=== PATIENT | male | born 1955 | race Caucasian/White ===

== ENCOUNTER → 2017-12-18 | Outpatient (CLI) | payer BC ==
--- NOTE | 2017-12-18 16:53 | RADIOLOGY REPORT (SQ) ---
EXAM DESCRIPTION: RIBS RIGHT W/PA CHEST COMPLETED DATE/TIME: 12/18/2017 3:55 pm REASON FOR STUDY: RIGHT RIB PAIN R07.81 PLEURODYNIA COMPARISON: None. TECHNIQUE: Frontal view of the chest and additional views of the right ribs acquired. NUMBER OF VIEWS: Five views LIMITATIONS: None. FINDINGS: FRONTAL CXR: No pneumothorax. No pleural effusion. No atelectasis or infiltrates. RIBS: No displaced rib fractures. No lytic or blastic bony lesions. OTHER: No other significant finding. IMPRESSION: NO PNEUMOTHORAX. NO DISPLACED RIB FRACTURES. COMMENT: SITE OF TRAUMA/COMPLAINT MARKED/STAMP COMPLETED: Yes TECHNICAL DOCUMENTATION: JOB ID: [id number] [employer]- All Rights Reserved Reading location - IP/workstation name: [email or web address]
== END ==
LOC: OD 15:23
PROVIDERS: ATTEND Nurse Practitioner Family
DX: R07.81 Pleurodynia (principal)

== ENCOUNTER 2019-03-12 07:58 | Day surgery (SDC) | payer MEDICARE, BC ==
[2019-03-12] MEDS ORDERED: PROPOFOL INJ 200 MG/20 ML VIAL IV ONE ×2 (08:02→09:20)
[2019-03-12 10:07] VITALS: BP 114/69
--- NOTE | 2019-03-12 14:27 | Operative Report ---
Operative Report DATE OF SURGERY: 03/12/19 Operative Report: The risks, benefits and alternatives of the procedure including the risk of bleeding, perforation requiring surgery have been explained to the patient in detail and informed consent has been obtained. The patient is brought back to the endoscopy suite and placed in the left, lateral decubital position. Timeout was called. Propofol medication is administered. Rectal examination is done which did not reveal any masses, tears or fissures. An Olympus videoscope was introduced into the patient's rectum. The scope was then carefully advanced all the way to the cecum. The cecum was identified by the usual anatomical landmarks including the ileocecal valve as well as the appendiceal office. Photodocumentation is obtained. The scope was then sequentially pulled back via the various segments of the colon including the ascending colon, hepatic flexu re, transverse colon, splenic flexure, descending colon and finally into the rectosigmoid portions of the colon. Retroflexion maneuvers performed. PREOPERATIVE DIAGNOSIS: Personal history of polyps POSTOPERATIVE DIAGNOSIS: Rectal polyps x2 removed via biopsy forceps. Diverticulosis without any evidence of diverticulitis. Internal hemorrhoids OPERATION: Colonoscopy with biopsy TISSUE REMOVED OR ALTERED: As noted above COMPLICATIONS: None. ESTIMATED BLOOD LOSS: None. INTRAOPERATIVE FINDINGS: As noted above. PROCEDURE: Patient tolerated the procedure well. No immediate postprocedure complications are noted. Patient is discharged in good condition. Discharge date 03/12/2019. Discharge diet: Regular. Discharge activity: Regular. 2 to 3-week follow-up to discuss findings. Patient is instructed to call the office or proceed to the emergency room should there be any further questions. Wait on the pathology. 5-year surveillance colonoscopy.
== END 2019-03-12 10:05 | disposition home or self-care (01) ==
LOC: END 07:58
PROVIDERS: ATTEND Internal Medicine Gastroenterology
DX: Z12.11 Encounter for screening for malignant neoplasm of colon (principal); K63.5 Polyp of colon; K57.30 Diverticulosis of large intestine without perforation or abscess without bleeding; K64.8 Other hemorrhoids; Z86.010 Personal history of colon polyps; E03.9 Hypothyroidism, unspecified; I10 Essential (primary) hypertension; Z79.82 Long term (current) use of aspirin; Z79.899 Other long term (current) drug therapy
CPT/HCPCS: 45380; 88305 ×2; J2704; 811